=== PATIENT | male | born 1975 | race Two or more races ===

== ENCOUNTER 2019-07-23 23:23 | Inpatient (IN) | payer OTHER ==
[~2019-07-23] VITALS: Ht 172.7 cm; Wt 67.5 kg
[~2019-07-23 23:23] MED LIST: OMEP40CA PO
[2019-07-24] VITALS (7 sets, daily range): BP systolic 113–127; BP diastolic 65–79
[2019-07-24] LABS: BASOPHILS % (AUTO) 0.6 % (0.0-2.0); EOSINOPHILS % (AUTO) 0.6 % (1.0-6.0); HEMATOCRIT 42.3 % (41-53); HEMOGLOBIN 14.1 g/dL (13.5-17.5); LYMPHOCYTES # (AUTO) 3.5 K/uL (1.0-4.8); MEAN CORPUSCULAR HEMOGLOBIN 29.3 pg (26.0-34.0); MEAN CORPUSCULAR HGB CONC 33.3 G/dL (31.0-37.0); MEAN CORPUSCULAR VOLUME 88 fL (80-100); MONOCYTES % (AUTO) 8.7 % (2.0-9.0); NEUTROPHILS % (AUTO) 60.1 % (40.0-70.0); PLATELET COUNT (AUTO) 399 K/uL (150-450); RED BLOOD CELL COUNT(AUTO) 4.81 MIL/uL (4.50-5.90); RED CELL DISTRIBUTION WIDTH 13.5 % (11.5-14.5)
[2019-07-24] MEDS ORDERED: MAGNESIUM HYDROXIDE SUSPENSION 30 ML UDCUP PO PRN
[2019-07-24] MEDS ORDERED: DOCUSATE SODIUM 100 MG CAPSULE PO PRN
[2019-07-24] MEDS ORDERED: MAG HYDROX/AL HYDROX/SIMETH ES 30 ML SUSPENSION UDCUP PO PRN
[2019-07-24] MEDS ORDERED: IBUPROFEN 400 MG TABLET PO PRN
[2019-07-24] MEDS ORDERED: CloNIDine HCL 0.1 MG TABLET PO PRN
[2019-07-24] MEDS ORDERED: PETROLATUM,WHITE 28 GM JELLY TP PRN
[2019-07-24] MEDS ORDERED: ACETAMINOPHEN/CODEINE 300-15 MG TABLET PO PRN
[2019-07-24] MEDS ORDERED: LORazepam 2 MG/ML VIAL IVP PRN
[2019-07-24] MEDS ORDERED: NICOTINE 14 MG/24 HOUR PATCH TD PRN
[2019-07-24] MEDS ORDERED: DICYCLOMINE HCL 10 MG CAPSULE PO PRN
[2019-07-24] MEDS ORDERED: GuaiFENesin/D-METHORPHAN [SUGAR-FREE] 200-20MG/10 ML SYRUP UDCUP PO PRN
[2019-07-24] MEDS ORDERED: ACETAMINOPHEN 325 MG TABLET PO PRN
[2019-07-24] MEDS ORDERED: ALBUTEROL SULFATE HFA 90 MCG/PUFF 8 GM INHALER IH PRN
[2019-07-24] MEDS ORDERED: LOPERAMIDE HCL 2 MG CAPSULE PO PRN
[2019-07-24] MEDS ORDERED: ONDANSETRON HCL 4 MG TABLET PO PRN
[2019-07-24] MEDS ORDERED: METOCLOPRAMIDE HCL 5 MG/ML 2 ML VIAL IVP PRN
[2019-07-24 00:04] LABS: ANION GAP 5 mmol/L (8-16); CALCIUM, TOTAL 8.8 mg/dL (8.8-10.5); CARBON DIOXIDE 31 mmol/L (22-29); CHLORIDE 103 mmol/L (98-107); CREATININE 0.87 mg/dL (0.60-1.30); GLOMERULAR FILTR. RATE CALC > 60 mL/min (>60); GLUCOSE,RANDOM 129 mg/dL (70-110); POTASSIUM 3.7 mmol/L (3.5-5.1); SODIUM SERUM 139 mmol/L (136-145); UREA NITROGEN, BLOOD 16 mg/dL (7-18)
[2019-07-24 00:11] LABS: ALANINE AMINOTRANSFERASE 27 U/L (12-78); ALBUMIN 3.4 g/dL (3.4-5.0); ALKALINE PHOSPHATASE 84 U/L (46-116); ASPARTATE AMINOTRANSFERASE 16 U/L (15-37); BILIRUBIN,TOTAL 0.3 mg/dL (0.1-1.0); TOTAL PROTEIN, SERUM 6.5 g/dL (6.4-8.2)
[2019-07-24] MEDS ORDERED: CloNIDine HCL 0.1 MG TABLET PO ONE (00:30)
[2019-07-24] MEDS ORDERED: LABETALOL HCL 5 MG/ML 20 ML VIAL IVP ONE (00:30)
[2019-07-24 07:11] LABS: BASOPHILS % (AUTO) 0.5 % (0.0-2.0); EOSINOPHILS % (AUTO) 0.5 % (1.0-6.0); HEMATOCRIT 42.3 % (41-53); HEMOGLOBIN 14.2 g/dL (13.5-17.5); LYMPHOCYTES % (AUTO) 30.8 % (22.0-44.0); MEAN CORPUSCULAR HEMOGLOBIN 29.6 pg (26.0-34.0); MEAN CORPUSCULAR HGB CONC 33.7 G/dL (31.0-37.0); MEAN CORPUSCULAR VOLUME 88 fL (80-100); MONOCYTES # (AUTO) 0.7 K/uL (0.1-1.0); MONOCYTES % (AUTO) 7.7 % (2.0-9.0); NEUTROPHILS # (AUTO) 5.8 K/uL (1.8-7.7); NEUTROPHILS % (AUTO) 60.5 % (40.0-70.0); PLATELET COUNT (AUTO) 394 K/uL (150-450); RED BLOOD CELL COUNT(AUTO) 4.81 MIL/uL (4.50-5.90); RED CELL DISTRIBUTION WIDTH 13.4 % (11.5-14.5)
[2019-07-24 07:25] LABS: HEMOGLOBIN A1C 5.9 % (4.5-6.2)
[2019-07-24 07:37] LABS: ALANINE AMINOTRANSFERASE 28 U/L (12-78); ALBUMIN 3.3 g/dL (3.4-5.0); ALKALINE PHOSPHATASE 72 U/L (46-116); ANION GAP 4 mmol/L (8-16); ASPARTATE AMINOTRANSFERASE 15 U/L (15-37); BILIRUBIN,TOTAL 0.3 mg/dL (0.1-1.0); CALCIUM, TOTAL 8.6 mg/dL (8.8-10.5); CARBON DIOXIDE 30 mmol/L (22-29); CHLORIDE 104 mmol/L (98-107); CHOL/HDL RATIO 2.5 (4.2-7.3); CHOLESTEROL 130 mg/dL (131-200); CREATININE 0.89 mg/dL (0.60-1.30); GLOMERULAR FILTR. RATE CALC > 60 mL/min (>60); GLUCOSE,RANDOM 90 mg/dL (70-110); HDL CHOLESTEROL 53 mg/dL (40-60); LDL CHOL (CALC.) 67 mg/dL (0-130); POTASSIUM 4.2 mmol/L (3.5-5.1); SODIUM SERUM 138 mmol/L (136-145); THYROID STIMULATING HORMONE 1.55 uIU/mL (0.36-3.74); TOTAL PROTEIN, SERUM 6.2 g/dL (6.4-8.2); TRIGLYCERIDES 51 mg/dL (15-150)
[2019-07-24 07:42] LABS: UREA NITROGEN, BLOOD 13 mg/dL (7-18)
[2019-07-24] MEDS ORDERED: MAGNESIUM SULFATE 2 GM, MVI, ADULT NO.1 WITH VIT K 10 ML, THIAMINE HCL 100 MG, FOLIC AC... IV ONE ×5 (08:45)
[2019-07-24] MEDS ORDERED: DiphenhydrAMINE HCL 25 MG CAPSULE PO PRN (10:30)
[2019-07-24] MEDS: DIVALPROEX SODIUM 500 MG DR TABLET PO SCH ×2 (13:06→20:42)
[2019-07-24] MEDS: OMEPRAZOLE 20 MG CAPSULE PO SCH (13:10)
[2019-07-24] MEDS: MIRTAZAPINE 30 MG TABLET PO SCH (20:42)
[2019-07-24] MEDS ORDERED: TEMAZEPAM 15 MG CAPSULE PO SCH (21:00)
[2019-07-25 04:12] VITALS: BP 118/71
[2019-07-25 07:29] VITALS: BP 138/84
[2019-07-25] MEDS ORDERED: MIRTAZAPINE 30 MG TABLET PO SCH (09:00)
[2019-07-25] MEDS: OMEPRAZOLE 20 MG CAPSULE PO SCH (09:16)
[2019-07-25] MEDS: DIVALPROEX SODIUM 500 MG DR TABLET PO SCH ×2 (09:16→21:09)
[2019-07-25 11:39] VITALS: BP 126/67
[2019-07-25 15:29] VITALS: BP 117/61
[2019-07-25] MEDS ORDERED: DIVA-78 PO (16:08)
[2019-07-25] MEDS ORDERED: MIRT30 PO (16:09)
[2019-07-25 19:47] VITALS: BP 100/61
[2019-07-25] MEDS: MIRTAZAPINE 30 MG TABLET PO SCH (21:09)
[2019-07-26 00:59] VITALS: BP 114/64
[2019-07-26 05:34] VITALS: BP 120/79
[2019-07-26 07:28] VITALS: BP 112/65
[2019-07-26] MEDS: OMEPRAZOLE 20 MG CAPSULE PO SCH (08:11)
[2019-07-26] MEDS: DIVALPROEX SODIUM 500 MG DR TABLET PO SCH (08:11)
== END 2019-07-26 14:00 | DRG 897 ==
LOC: EMS 23:28 → 6S 23:30
PROVIDERS: ADMIT Internal Medicine; ATTEND Internal Medicine
DX: F11.23 Opioid dependence with withdrawal (principal); F25.1 Schizoaffective disorder, depressive type; F17.210 Nicotine dependence, cigarettes, uncomplicated; K21.9 Gastro-esophageal reflux disease without esophagitis; F10.10 Alcohol abuse, uncomplicated; Z87.11 Personal history of peptic ulcer disease; Z59.0 Homelessness
CPT/HCPCS: 83036; 84443; G0480; J3411; J3475; J3490; J7030

== ENCOUNTER 2020-01-17 19:21 | Emergency (ER) | payer MEDICAID, OTHER ==
[~2020-01-17] VITALS: Ht 172.7 cm; Wt 81.8 kg
[~2020-01-17 19:21] MED LIST changes: +DIVA-78 PO; +MIRT30 PO
[2020-01-17 20:00] LABS: BASOPHILS % (AUTO) 0.4 % (0.0-2.0); EOSINOPHILS % (AUTO) 0.5 % (1.0-6.0); HEMATOCRIT 47.3 % (41-53); HEMOGLOBIN 16.1 g/dL (13.5-17.5); LYMPHOCYTES # (AUTO) 2.4 K/uL (1.0-4.8); LYMPHOCYTES % (AUTO) 20.4 % (22.0-44.0); MEAN CORPUSCULAR HEMOGLOBIN 30.2 pg (26.0-34.0); MEAN CORPUSCULAR VOLUME 89 fL (80-100); MONOCYTES # (AUTO) 0.8 K/uL (0.1-1.0); MONOCYTES % (AUTO) 6.7 % (2.0-9.0); NEUTROPHILS # (AUTO) 8.6 K/uL (1.8-7.7); PLATELET COUNT (AUTO) 317 K/uL (150-450); RED BLOOD CELL COUNT(AUTO) 5.33 MIL/uL (4.50-5.90)
[2020-01-17 20:20] LABS: ANION GAP 12 mmol/L (8-16); CALCIUM, TOTAL 9.1 mg/dL (8.8-10.5); CARBON DIOXIDE 25 mmol/L (22-29); CHLORIDE 104 mmol/L (98-107); CREATININE 1.36 mg/dL (0.60-1.30); GLOMERULAR FILTR. RATE CALC 57 mL/min (>60); GLUCOSE,RANDOM 151 mg/dL (70-110); POTASSIUM 3.8 mmol/L (3.5-5.1); SODIUM SERUM 141 mmol/L (136-145); UREA NITROGEN, BLOOD 23 mg/dL (7-18)
[2020-01-17 20:26] LABS: ALANINE AMINOTRANSFERASE 87 U/L (12-78); ALBUMIN 4.2 g/dL (3.4-5.0); ALKALINE PHOSPHATASE 80 U/L (46-116); ASPARTATE AMINOTRANSFERASE 41 U/L (15-37); BILIRUBIN,TOTAL 0.4 mg/dL (0.1-1.0)
[2020-01-17 20:36] LABS: B-TYPE NATRIURETIC PEPTIDE < 5 pg/mL (0-100)
[2020-01-17 20:43] VITALS: BP 142/70
== END 2020-01-17 21:18 | disposition left against medical advice (07) ==
LOC: EMS 19:23
DX: F11.10 Opioid abuse, uncomplicated (principal); R74.0 Nonspecific elevation of levels of transaminase and lactic acid dehydrogenase [LDH]; F17.210 Nicotine dependence, cigarettes, uncomplicated; F12.90 Cannabis use, unspecified, uncomplicated; Z79.899 Other long term (current) drug therapy
CPT/HCPCS: 36415; 71045; 80053; 83880; 84484; 85025; 93005; 99285; G0480